=== PATIENT | male | born 1985 | race Caucasian/White ===

== ENCOUNTER 2016-10-20 13:34 | Emergency (ER) | payer BC, OTHER ==
[~2016-10-20] VITALS: Ht 188 cm; Wt 99.4 kg
[2016-10-20] MEDS ORDERED: MAXA5TAB10 PO (13:51)
--- NOTE | 2016-10-20 15:55 | REP ---
Right femur: 10/20/2016. Clinical history: Trauma distal femur. Four views are provided to encompass the entirety of the femur in two projections. The hip and knee show no fracture or focal lesion. No definite joint effusion. No hip joint space narrowing. Femoral shaft without a fracture. The acetabulum and right SI joint were grossly unremarkable. No abnormal soft tissue calcifications adjacent to the femur. Patella grossly intact. Impression: 1. Negative for fracture, focal bone lesion, abnormal soft-tissue calcification about the femur or other acute finding. Signed by Eb Menchaca MD 10/20/2016 09:23 P
--- NOTE | 2016-10-20 15:55 | REP ---
PA chest with left ribs 10/20/2016: Comparison: 09/10/2009. Clinical history: Trauma. Left lateral chest evaluate ribs. Findings: PA chest: Lungs are well inflated without infiltrate, effusion, atelectasis or mass. Artifact hangs over the lung apices but does not really obscure any findings. There is no lateral pleural thickening, pleural effusion, apical pleural scarring or pneumothorax. There is no acute infiltrate, nodule or mass. The heart is not enlarged. The airway and aorta intact. Mediastinal hilar contours normal. Bones grossly intact on the PA chest. Left ribs: Posterior rib articulations are intact. The visualized vertebral bodies, spinous processes, lamina, facets and transverse processes were all grossly unremarkable. Focal bone lesion, effusion or pneumothorax. Impression: 1. Negative PA chest and left rib series. No acute finding. Signed by Eb Menchaca MD 10/20/2016 09:23 P
[2016-10-20] MEDS ORDERED: ULTR50TA8 PO (16:10)
[2016-10-20 16:16] VITALS: BP 127/74
== END 2016-10-20 16:24 | disposition home or self-care (01) ==
LOC: M ED 13:34
DX: S70.11XA Contusion of right thigh, initial encounter (principal); S20.212A Contusion of left front wall of thorax, initial encounter; S20.312A Abrasion of left front wall of thorax, initial encounter; S09.90XA Unspecified injury of head, initial encounter; W01.10XA Fall on same level from slipping, tripping and stumbling with subsequent striking against unspecified object, initial encounter; Y92.9 Unspecified place or not applicable; Y93.9 Activity, unspecified; Y99.0 Civilian activity done for income or pay

== ENCOUNTER 2016-11-04 22:44 | Emergency (ER) | payer BC, OTHER ==
[~2016-11-04] VITALS: Ht 188 cm; Wt 97.8 kg
[~2016-11-04 22:44] MED LIST: MAXA5TAB10 PO; ULTR50TA8 PO
[2016-11-04] MEDS ORDERED: NAPR500T3 PO (23:02)
[2016-11-05] MEDS ORDERED: NS 1,000 ML IV ONE (00:30)
[2016-11-05] MEDS ORDERED: KETOROLAC 30 MG/ML VIAL (J1885) IV ONE (00:30)
[2016-11-05 00:59] LABS: BASO % 0.5 % (0.0-1.0); EOS # 0.3 K/mm3 (0.0-0.50); EOS % 3.4 % (0.0-3.0); LARGE UNSTAINED CELL # 0.2 K/mm3 (0.0-0.4); LARGE UNSTAINED CELL % 2.3 % (0.0-4.0); LYMPH # 3.5 K/mm3 (1.5-6.5); LYMPH % 33.1 % (24.0-44.0); MEAN CORPUSCULAR HEMOGLOBIN 32.1 pg (27.0-33.0); MEAN CORPUSCULAR HGB CONC 36.1 g/dl (32.0-36.5); MEAN CORPUSCULAR VOLUME 88.9 fl (80.0-96.0); MONO # 0.7 K/mm3 (0.0-0.8); MONO % 7.3 % (0.0-5.0); NEUTROPHILS # 5.2 K/mm3 (1.8-7.7); NEUTROPHILS % 53.4 % (36.0-66.0); PLATELET COUNT, AUTOMATED 284 k/mm3 (150-450); RED CELL DISTRIBUTION WIDTH 12.5 % (11.5-14.5); WHITE BLOOD COUNT 9.7 K/mm3 (4.0-10.0)
[2016-11-05 01:20] LABS: ALBUMIN 4.4 GM/DL (3.2-5.2); ALBUMIN/GLOBULIN RATIO 1.47 (1.00-1.93); ALKALINE PHOSPHATASE 99 U/L (45-117); ALT/SGPT 35 U/L (12-78); AMYLASE 58 U/L (25-115); ANION GAP 6 MEQ/L (8-16); AST/SGOT 17 U/L (15-37); BILIRUBIN,DIRECT 0.2 MG/DL (0.0-0.2); BILIRUBIN,TOTAL 0.9 MG/DL (0.2-1.0); BLOOD UREA NITROGEN 18 MG/DL (7-18); CALCIUM LEVEL 9.4 MG/DL (8.5-10.1); CARBON DIOXIDE LEVEL 29 MEQ/L (21-32); CHLORIDE LEVEL 105 MEQ/L (98-107); CREATININE FOR GFR 0.87 MG/DL (0.70-1.30); GLOMERULAR FILTRATION RATE > 60.0 (>60); GLUCOSE, FASTING 98 MG/DL (70-105); POTASSIUM SERUM 4.4 MEQ/L (3.5-5.1); SODIUM LEVEL 140 MEQ/L (136-145); TOTAL PROTEIN 7.4 GM/DL (6.4-8.2)
[2016-11-05] MEDS ORDERED: ISOVUE-370 76% 100ML VIAL (Q9967) As Ordered ONE (01:30)
--- NOTE | 2016-11-05 02:20 | REPUSA ---
CLINICAL HISTORY: Abdominal pain. TECHNIQUE: Multiple axial, sagittal and coronal CT images were obtained through the abdomen and pelvi s after administration of intravenous contrast material. COMMENTS: The liver is of uniform attenuation without mass or defect. There is no intra or extrahepatic biliary ductal dilatation. The spleen is normal. The gallbladder is within normal limits. The pancreas is of normal contour and attenuation characteristics. There is no evidence of adrenal mass. Both kidneys demonstrate prompt and equal nephrograms. The kidneys are normal in size, shape and conf iguration. There is no evidence of renal or ureteral mass. No renal or ureteral calculi are identifie d. There is no hydroureter or hydronephrosis. No evidence for appendicitis. There is no bowel wall thickening. No evidence for small or large corwin l obstruction. There is no evidence of abdominal ascites or lymphadenopathy. There is no evidence of intrinsic or extrinsic bladder mass. There is no pelvic ascites or lymphadeno glenna. Images of the lung bases show no evidence of pleural or parenchymal mass. There are no pleural effusi ons. The bony structures are free of lytic or blastic lesions. IMPRESSION: No evidence of acute abdominal or pelvic pathology. Thank you for your kind referral of this patient.
--- NOTE | 2016-11-05 02:20 | REPUSA ---
CLINICAL HISTORY: Trauma. TECHNIQUE: Multiple axial CT images were obtained through chest with IV contrast material. MPR leiva l and sagittal sequences were obtained. COMMENTS: There is no evidence of pleural or parenchymal mass. There are no pleural effusions. There is no evid ence of hilar or mediastinal lymphadenopathy. The heart and great vessels are within normal limits. The visualized portions of the liver are of uniform attenuation without mass or defect. There is no i ntra or extrahepatic biliary ductal dilatation. The spleen is unremarkable. The visualized pancreas i s of normal contour and attenuation characteristics. There is no evidence of adrenal mass. The visual ized portions of the kidneys present no abnormalities. The bony structures are free of lytic or blastic lesions. No evidence for abnormal enhancement. IMPRESSION: No evidence of acute thoracic pathology. Thank you for your kind referral of this patient.
[2016-11-05] MEDS ORDERED: KETO10TAB PO (02:28)
[2016-11-05] MEDS ORDERED: MORPHINE 10 MG/ML 1ML VIAL IV ONE (02:30)
[2016-11-05 03:41] VITALS: BP 113/73
[2016-11-05] MEDS ORDERED: NORCO, ANEXSIA 5/325MG TABLET (HYDROcodone/ACETAMINOPHEN) PO ONE (03:45)
== END 2016-11-05 03:42 | disposition home or self-care (01) ==
LOC: M ED 22:44
DX: R07.82 Intercostal pain (principal); Z91.81 History of falling; K21.9 Gastro-esophageal reflux disease without esophagitis; G43.909 Migraine, unspecified, not intractable, without status migrainosus
CPT/HCPCS: 71260; 74177; 80048; 80076; 82150; 83690; 85025; 96374; 99283; J1885; Q9967

== ENCOUNTER → 2017-05-26 | Outpatient (REF) | payer OTHER ==
[2017-05-26 16:02] LABS: CHLAMYDIA DNA AMPLIFICATION NEGATIVE (NEGATIVE); GC DNA AMPLIFICATION NEGATIVE (NEGATIVE)
== END ==
LOC: M LAB REF 12:54
DX: R35.0 Frequency of micturition (principal); Z11.3 Encounter for screening for infections with a predominantly sexual mode of transmission
CPT/HCPCS: 87086

== ENCOUNTER → 2017-05-27 | Outpatient (CLI) | payer OTHER ==
[2017-05-27 08:31] LABS: ANION GAP 3 MEQ/L (8-16); BLOOD UREA NITROGEN 15 MG/DL (7-18); CARBON DIOXIDE LEVEL 32 MEQ/L (21-32); CHLORIDE LEVEL 105 MEQ/L (98-107); CREATININE FOR GFR 0.87 MG/DL (0.70-1.30); GLOMERULAR FILTRATION RATE > 60.0 (>60); GLUCOSE, FASTING 94 MG/DL (70-100); POTASSIUM SERUM 4.1 MEQ/L (3.5-5.1); SODIUM LEVEL 140 MEQ/L (136-145)
== END ==
LOC: M LAB 07:35
DX: R35.0 Frequency of micturition (principal)
CPT/HCPCS: 80048

== ENCOUNTER → 2018-12-14 | Outpatient (CLI) | payer BC, OTHER ==
[~2018-12-14] MED LIST changes: +KETO10TAB PO; +NAPR-885 PO
[2018-12-14 09:18] LABS: FREE T4 0.92 NG/DL (0.76-1.46); THYROID STIMULATING HORMONE 0.922 uIU/ML (0.358-3.740)
== END ==
LOC: M LAB 08:15
PROVIDERS: ATTEND Physician Assistant Medical
DX: Z84.89 Family history of other specified conditions (principal)

== ENCOUNTER → 2019-12-30 | Outpatient (CLI) | payer BC, OTHER ==
[2019-12-30 08:27] LABS: ALBUMIN 4.1 GM/DL (3.2-5.2); ALT/SGPT 54 U/L (12-78); BLOOD UREA NITROGEN 17 MG/DL (7-18); CALCIUM LEVEL 8.8 MG/DL (8.5-10.1); CARBON DIOXIDE LEVEL 30 MEQ/L (21-32); CHLORIDE LEVEL 105 MEQ/L (98-107); CHOLESTEROL LEVEL 143 MG/DL (<200); CHOLESTEROL RISK RATIO 3.763 (<5); CREATININE FOR GFR 0.95 MG/DL (0.70-1.30); FREE T4 1.01 NG/DL (0.76-1.46); GLOMERULAR FILTRATION RATE > 60.0 (>60); GLUCOSE, FASTING 91 MG/DL (70-100); HDL CHOLESTEROL 38 MG/DL (>40); LDL CHOLESTEROL 89 MG/DL (<100); NON-HDL-C 105 MG/DL; POTASSIUM SERUM 3.9 MEQ/L (3.5-5.1); SODIUM LEVEL 140 MEQ/L (136-145); TOTAL PROTEIN 7.3 GM/DL (6.4-8.2); TRIGLYCERIDES LEVEL 82 MG/DL (<150)
== END ==
LOC: M LAB 07:09
PROVIDERS: ATTEND Nurse Practitioner Family
DX: Z00.00 Encounter for general adult medical examination without abnormal findings (principal)

== ENCOUNTER → 2023-12-30 | Outpatient (CLI) | payer BC ==
[2023-12-30 07:39] LABS: ALBUMIN 4.3 G/DL (3.2-5.2); ALKALINE PHOSPHATASE 90 U/L (46-116); ALT/SGPT 25 U/L (7.0-40); AST/SGOT 14 U/L (<34); BILIRUBIN,TOTAL 1.7 MG/DL (0.3-1.2); BLOOD UREA NITROGEN 12 MG/DL (9-23); CALCIUM LEVEL 9.6 MG/DL (8.5-10.1); CARBON DIOXIDE LEVEL 31 MMOL/L (20-31); CHLORIDE LEVEL 104 MMOL/L (98-107); CHOLESTEROL LEVEL 154 MG/DL (<200); CHOLESTEROL RISK RATIO 3.84 (<5); CREATININE FOR GFR 0.89 MG/DL (0.70-1.30); GLOMERULAR FILTRATION RATE > 60.0 (>60); GLUCOSE, FASTING 101 MG/DL (60-100); HDL CHOLESTEROL 40.1 MG/DL (>40); LDL CHOLESTEROL 93.9 MG/DL (<100); NON-HDL-C 113.9 MG/DL; POTASSIUM SERUM 3.9 MMOL/L (3.5-5.1); SODIUM LEVEL 137 MMOL/L (136-145); TRIGLYCERIDES LEVEL 100 MG/DL (<150)
[2023-12-30 07:41] LABS: FREE T4 1.42 NG/DL (0.89-1.76); THYROID STIMULATING HORMONE 1.245 uIU/ML (0.55-4.78)
== END ==
LOC: M LAB 06:48
PROVIDERS: ATTEND Nurse Practitioner Family
DX: Z00.00 Encounter for general adult medical examination without abnormal findings (principal)